=== PATIENT | male | born 1950 | race Caucasian/White ===

== ENCOUNTER → 2020-07-31 | Outpatient (CLI) | payer MEDICARE ==
[~2020-07-31] MED LIST: BUME2TAB7 PO; CARV6.2548 PO; COLC0.6C3 PO; NAPR-677 PO; NIFE90TA60 PO
== END | disposition home or self-care (01) ==
LOC: LAB 09:33
PROVIDERS: ATTEND Surgery Vascular Surgery
DX: Z20.828 Contact with and (suspected) exposure to other viral communicable diseases (principal)
CPT/HCPCS: C9803; U0003

== ENCOUNTER 2020-08-02 09:40 | Day surgery (SDC) | payer MEDICARE ==
[~2020-08-02] VITALS: Ht 165.1 cm; Wt 76.2 kg
[2020-08-02 10:30] LABS: HEMATOCRIT 31.9 % (42.0-52.0); HEMOGLOBIN 10.7 g/dL (14.0-18.0); MEAN CORPUSCULAR VOLUME 86.7 fL (80.0-94.0); PLATELET 226 x1000/uL (130-400); RED BLOOD CELL COUNT 3.68 mill/uL (4.7-6.1); RED CELL DISTRIBUTION WIDTH 16.9 % (11.6-14.6)
[2020-08-02] MEDS ORDERED: PAPAVERINE HCL 30 MG/ML 2ML IV ONE (11:22)
[2020-08-02] MEDS ORDERED: BACITRACIN 15GM TUBE TOP ONE (11:22)
[2020-08-02] MEDS ORDERED: THROMBIN (BOVINE) 5000 UNITS/VIAL TOP ONE (11:22)
[2020-08-02] MEDS ORDERED: LIDOCAINE HCL 1% 20ML VIAL (Pyxis) INJ ONE (11:22)
[2020-08-02] MEDS ORDERED: BUPIVACAINE HCL/PF 0.5% (5MG/ML) 10ML ONE (11:23)
[2020-08-02] MEDS ORDERED: BACITRACIN 50,000 UNITS/VIAL ONE (11:23)
[2020-08-02] MEDS ORDERED: HEPARIN SODIUM 1,000 UNIT/1ML VIAL IV ONE (11:23)
[2020-08-02] MEDS ORDERED: GLYCOPYRROLATE 0.2 MG/ML 2ML VIAL ONE (11:35)
[2020-08-02] MEDS ORDERED: MIDAZOLAM HCL 2 MG/2 ML VIAL ONE (11:35)
[2020-08-02] MEDS ORDERED: FENTANYL CITRATE/PF 50MCG/ML 2ML VIAL ONE (11:35)
[2020-08-02] MEDS ORDERED: PROPOFOL 200MG/20ML VIAL IV ONE (11:35)
[2020-08-02] MEDS ORDERED: ROCURONIUM BROMIDE 10MG/ML VIAL 5ML IV ONE (11:35)
[2020-08-02] MEDS ORDERED: NEOSTIGMINE METHYLSULFATE 1MG/ML 10 ML VIAL ONE (11:35)
[2020-08-02] MEDS ORDERED: ONDANSETRON HCL 4MG/2ML INJ ONE (11:37)
[2020-08-02] MEDS ORDERED: DEXAMETHASONE 4MG/ML 1ML VIAL ONE (11:37)
[2020-08-02] MEDS ORDERED: BUME2TAB7 PO (12:52)
[2020-08-02] MEDS ORDERED: COLC0.6C3 PO (12:52)
[2020-08-02] MEDS ORDERED: CARV6.2548 PO (12:52)
[2020-08-02] MEDS ORDERED: NAPR-677 PO (12:52)
[2020-08-02] MEDS ORDERED: NIFE90TA60 PO (12:52)
[2020-08-02] MEDS ORDERED: SKIN ADHESIVE 0.7 GM EA TOP ONE (13:09)
[2020-08-02] MEDS ORDERED: ONDANSETRON HCL 4MG/2ML INJ IV PRN (13:15)
[2020-08-02] MEDS ORDERED: LABETALOL 5MG/ML SYR 20 MG/4 ML SYRINGE IV PRN (13:15)
[2020-08-02] MEDS ORDERED: MEPERIDINE HCL/PF 25MG/ML CPJ IV PRN (13:15)
[2020-08-02] MEDS ORDERED: HYDROCODONE/ACETAMINOPHEN 5/325MG TABLET PO PRN ×2 (13:30)
[2020-08-02] MEDS: HYDROMORPHONE HCL/PF 2MG/ML CPJ IV PRN ×2 (14:05→14:53)
[2020-08-02] MEDS ORDERED: HEPARIN SODIUM 1,000 UNIT/1ML VIAL IV NR (14:16)
[2020-08-02 14:53] VITALS: BP 141/70
== END 2020-08-02 16:02 | disposition home or self-care (01) ==
LOC: OR 09:40
PROVIDERS: ATTEND Surgery Vascular Surgery
DX: I12.0 Hypertensive chronic kidney disease with stage 5 chronic kidney disease or end stage renal disease (principal); N18.6 End stage renal disease; E11.22 Type 2 diabetes mellitus with diabetic chronic kidney disease; E78.00 Pure hypercholesterolemia, unspecified; Z79.899 Other long term (current) drug therapy; Z79.84 Long term (current) use of oral hypoglycemic drugs; Z98.890 Other specified postprocedural states; Z99.2 Dependence on renal dialysis
CPT/HCPCS: 36415; 36818; 80048; 82962; 85027; 93005; J1100; J1170; J1644; J2250; J2405; J2440; J2704; J2710; J3010; J3490